=== PATIENT | female | born 1955 | race Caucasian/White ===

== ENCOUNTER → 2020-01-03 13:28 | Outpatient (CLI) | payer MEDICARE, OTHER, SELFPAY ==
--- NOTE | ~2020-01-03 | MM_ITS ---
EXAMINATION: MM screening [facility] BI w vasquez HISTORY: Screening TECHNIQUE: Craniocaudal and mediolateral oblique 3-D tomosynthesis images were obtained and synthetic 2-D images were generated. CAD analysis was submitted and interpreted. COMPARISON: Comparison to multiple prior studies sequentially, with oldest reviewed study dated 12/19. BREAST PARENCHYMAL COMPOSITION: There are scattered areas of fibroglandular density. FINDINGS: There is focal asymmetry in the central aspect of the right breast the left breast is stabl e without evidence for malignancy. IMPRESSION: 1. Focal asymmetry central aspect of the right breast. 2. Additional mammographic views and possible breast ultrasound are recommended. BI-RADS Category 0: Incomplete: Needs additional imaging evaluation. Reviewed, dictated and finalized at location A. IMPRESSION: 1. Focal asymmetry central aspect of the right breast. 2. Additional mammographic views and possible breast ultrasound are recommended . BI-RADS Category 0: Incomplete: Needs additional imaging evaluation.
== END ==
DX: Z12.31 Encounter for screening mammogram for malignant neoplasm of breast (principal); R92.8 Other abnormal and inconclusive findings on diagnostic imaging of breast
CPT/HCPCS: 77063; 77067

== ENCOUNTER → 2020-01-16 08:20 | Outpatient (CLI) | payer MEDICARE, OTHER, SELFPAY ==
--- NOTE | ~2020-01-16 | MMUS_ITS ---
EXAMINATION: MM diagnostic mammo unilat RT, US breast RT limited HISTORY: Right breast focal asymmetry on screening mammogram TECHNIQUE: Additional 3-D tomosynthesis images of the right breast were performed and synthetic 2-D i mages were generated. CAD analysis was submitted and interpreted. High resolution limited right breas t ultrasound was performed. COMPARISON: 01/03/2020, 08/08/2018, 06/07/2017 FINDINGS: MAMMOGRAPHIC FINDINGS: No definite focal asymmetry persists with spot compression of the breast. There is no suspicious mass , calcification, or architectural distortion. ULTRASOUND: There is a 4 mm cyst at the 10:00 location 6 cm from the nipple. A 3 mm x 2 mm oval, circumscribed, p arallel, hypoechoic mass with no posterior features or internal vascularity is present at the 9:00 lo cation 3.5 cm from the nipple. IMPRESSION: 1. Probably benign right breast mass at the 9:00 location. 2. Recommend 6 month follow-up right diagnostic mammogram and ultrasound. BI-RADS category 3, probably benign findings. Reviewed, dictated and finalized at location A. IMPRESSION: 1. Probably benign right breast mass at the 9:00 location. 2. Recommend 6 month follow-up right diagnostic mammogram and ultrasound. BI-RADS category 3, probably benign findings.
== END ==
DX: R92.8 Other abnormal and inconclusive findings on diagnostic imaging of breast (principal)
CPT/HCPCS: 76642; 77065

== ENCOUNTER → 2020-07-16 09:18 | Outpatient (CLI) | payer MEDICARE, OTHER, SELFPAY ==
--- NOTE | ~2020-07-16 | MMUS_ITS ---
EXAMINATION: MM diagnostic tolu RT w vasquez, US breast RT complete HISTORY: Six-month follow-up of probably benign right 3 x 2 mm hypoechoic 9:00 breast mass 3.5 cm fro m nipple TECHNIQUE: Field ML, MLO and cc 3-D tomosynthesis images of were performed and synthetic 2-D images w ere generated. CAD analysis was submitted and interpreted. High resolution complete right breast ultr asound was performed. COMPARISON: 01/16/2020 diagnostic right mammogram and limited right breast ultrasound 01/03/2020 bilateral digital screening mammogram 06/07/2017, 04/22/2016, 02/24/2015 bilateral digital screening mammogram examinations BREAST PARENCHYMAL COMPOSITION: The breasts are heterogeneously dense, which may obscure small masses . FINDINGS: MAMMOGRAPHIC FINDINGS: No suspicious mass, architectural distortion, malignant calcification, skin thickening or retraction of the right breast is evident. ULTRASOUND: 9:00 3.5 cm from nipple: Parallel circumscribed hypoechoic 1.6 x 2.6 x 3.1 mm lesion without posterio r shadowing 10:00 6 cm from nipple: Parallel circumscribed sonolucency measuring 1.9 x 3.8 x 4.7 mm, without post erior shadowing or internal vascularity, consistent with benign process IMPRESSION: 1. Probably benign findings 2. Six-month targeted 9:00 and 10:00 right breast ultrasound follow-up are recommended BI-RADS category 3, probably benign findings. Reviewed, dictated and finalized at location A. IMPRESSION: 1. Probably benign findings 2. Six-month targeted 9:00 and 10:00 right breast ultrasound follow-up are carlos mmended BI-RADS category 3, probably benign findings.
== END ==
DX: R92.8 Other abnormal and inconclusive findings on diagnostic imaging of breast (principal)
CPT/HCPCS: 76641; 77061; 77065; G0279

== ENCOUNTER → 2021-01-05 10:16 | Outpatient (CLI) | payer MEDICARE, OTHER, SELFPAY ==
--- NOTE | ~2021-01-05 | MM_ITS ---
EXAMINATION: MM screening tolu BI w vasquez HISTORY: Screening mammogram TECHNIQUE: Craniocaudal and mediolateral oblique 3-D tomosynthesis images were obtained and synthetic 2-D images were generated. Bilateral rotated lateral cc views. CAD analysis was submitted and interp reted. COMPARISON: 01/05/2021 Limited right breast ultrasound examination / diagnostic right mammogram and complete right breast ultrasound examination 01/16/2020 diagnostic right mammogram and limited right breast ultrasound 01/03/2020, 08/08/2018, 06/07/2017 bilateral digital screening mammogram examinations BREAST PARENCHYMAL COMPOSITION: The breasts are heterogeneously dense, which may obscure small masses . FINDINGS: There is no evidence of suspicious mass, calcification, or architectural distortion to sugg est malignancy in either breast. There has been no suspicious interval change. IMPRESSION: 1. No mammographic evidence of malignancy. 2. Recommend routine screening mammography in one year. BI-RADS Category 1: Negative Reviewed, dictated and finalized at location A.
--- NOTE | ~2021-01-05 | US_ITS ---
US breast RT limited DATE: 01/05/2021 10:33 INDICATION: Six-month follow-up of 07/16/2020 right breast 9:00 and 10:00 sonographic findings TECHNIQUE: High-resolution ultrasound imaging targeted to right breast at 9:00 and 10:00 COMPARISON: complete right breast ultrasound FINDINGS: 10:00 6 cm from nipple: 3 x 2 x 3 mm sonolucency with through transmission consistent with small cyst , diminished in size since 07/16/2020, at which time it measured approximately 2 x 3.8 x 4.7 mm. The small cyst at 9:00 noted on 07/16/2020 is no longer detected. IMPRESSION: BI-RADS Category 2: Benign Recommendation: Routine mammographic screening Reviewed, dictated and finalized at Location A. Reviewed, dictated and finalized at location A.
== END ==
DX: Z12.31 Encounter for screening mammogram for malignant neoplasm of breast (principal); N60.01 Solitary cyst of right breast
CPT/HCPCS: 76642; 77063; 77067

== ENCOUNTER → 2022-01-10 11:54 | Outpatient (CLI) | payer MEDICARE, OTHER, SELFPAY ==
--- NOTE | ~2022-01-10 | MM_ITS ---
EXAMINATION: MM screening [facility] BI w vasquez HISTORY: Screening mammogram TECHNIQUE: Craniocaudal and mediolateral oblique 3-D tomosynthesis images were obtained and synthetic 2-D images were generated. CAD analysis was submitted and interpreted. COMPARISON: 01/05/2021, 07/16/2020, 01/16/2020, 01/03/2020 BREAST PARENCHYMAL COMPOSITION: There are scattered areas of fibroglandular density. FINDINGS: No suspicious mass, calcification, or architectural distortion are identified in either bianca ast to suggest malignancy. There has been no suspicious interval change. IMPRESSION: 1. No mammographic evidence of malignancy. 2. Recommend routine screening mammography in one year. BI-RADS Category 1: Negative Reviewed, dictated and finalized at location A.
== END ==
DX: Z12.31 Encounter for screening mammogram for malignant neoplasm of breast (principal)
CPT/HCPCS: 77063; 77067

== ENCOUNTER 2022-03-11 11:48 | Emergency (ER) | payer MEDICARE, OTHER, SELFPAY ==
[2022-03-11 12:00] VITALS: BP 148/90; PULSE 98; RESP 18; TEMP 37.6; O2SAT 99
--- NOTE | 2022-03-11 12:32 | ED.URI ---
HPI - URI/Sore Throat General Chief Complaint: Upper Respiratory Infection Stated Complaint: wants flu and covid test Time Seen by Provider: 03/11/22 12:32 Source: patient, RN notes reviewed and old records reviewed Mode of arrival: ambulatory Limitations: no limitations History of Present Illness HPI Narrative: 66-year-old female presents to the [facility] with complaints of cough, low-grade fevers, body aches, minor headache that started yesterday. [facility]. Wanted to verify. Related Data Home Medications Medication Instructions Recorded Confirmed atorvastatin 20 mg tablet 20 mg PO DAILY 03/11/22 03/11/22 enalapril maleate 5 mg tablet 5 mg PO DAILY 03/11/22 03/11/22 famotidine 40 mg tablet 40 mg PO DAILY 03/11/22 03/11/22 levothyroxine 25 mcg tablet 25 mcg PO DAILY 03/11/22 03/11/22 Allergies Allergy/AdvReac Type Severity Reaction Status Date / Time Penicillins Allergy Rash Verified 03/11/22 12:13 Review of Systems Review of Systems: All systems reviewed & are unremarkable except as noted in HPI and below Constitutional: Constitutional: Reports as per HPI Eyes: Eyes: Reports no additional eye complaints ENT: Reports as per HPI Cardiovascular: Cardiovascular: Reports no additional cardiovascular complaints, Denies chest pain and Denies dyspnea Respiratory: Respiratory: Reports no additional respiratory complaints, Denies chest congestion, Denies cough and Denies dyspnea Gastrointestinal: Gastrointestinal: Reports no additional gastrointestinal complaints, Denies abdominal pain, Denies nausea and Denies vomiting Musculoskeletal: Musculoskeletal: Reports no additional musculoskeletal complaints Integumentary/Breasts: Skin/Breast: Reports system reviewed and no additional complaints, except as docu Neurologic: Reports system reviewed and no additional complaints, except as documented Psychiatric: Psychiatric: Reports no additional psychiatric complaints Allergic/Immunologic: Allergic/Immunologic: Reports no additional allergic/immunologic complaints PMFSH Comments At the time of my signature, I reviewed and agree with the nursing past medical, surgical, social, and family history. There is no relevant family history pertinent to the patient complaint. Exam Const: General: cooperative, healthy appearing, comfortable, no acute distress, well developed, alert and well nourished Nutritional Appearance: well nourished Orientation/consciousness: patient oriented x3 Limitations: no limitations HENMT: Head: normal to inspection Ears: hearing grossly normal bilaterally and external ears normal Face/Nose/Sinus: Normal external nose present, Normal nares present, Normal nasal mucous membranes and turbinates present and normal facial exam Face and sinus: normal facial exam Mouth: Yes Normal oral and palatal mucosa present, Yes lip normal and Yes moist mucous membranes Throat: posterior oropharynx normal and uvula midline Eyes: General: appearance normal, both eyes and all related structures Alignment and Position: alignment normal Periorbital: periorbital findings normal Conjunctivae: conjunctivae normal Pupils: Equal, round and reactive pupils present EOM: EOMs intact bilaterally Neck: Neck: normal visual inspection, full ROM, no lymphadenopathy and no meningeal signs Chest: Chest palpation & inspection: normal inspection of the chest Resp: Effort & Inspection: normal respiratory effort and able to speak in complete sentences Auscultation: clear to auscultation bilaterally, no crackles, no rales, no rhonchi and no wheezes Cardio: Rate: regular rate Rhythm: regular rhythm Back/Spine/Pelvis: Cervical Spine: cervical ROM normal Thoracic/Lumbar Spine: No thoracic spinal tenderness Skin: General skin exam: normal color and no rashes or lesions noted Lesions: no lesions Rashes: no rashes Wounds: no wounds Neuro: General: patient oriente
== END 2022-03-11 12:50 | disposition home or self-care (01) ==
PROVIDERS: Emergency Provider Nurse Practitioner
DX: U07.1 COVID-19 (principal); E78.00 Pure hypercholesterolemia, unspecified; I10 Essential (primary) hypertension; K21.9 Gastro-esophageal reflux disease without esophagitis; E03.9 Hypothyroidism, unspecified
CPT/HCPCS: 99202; G0463

== ENCOUNTER → 2022-10-20 09:24 | Outpatient (CLI) | payer MEDICARE, OTHER, SELFPAY ==
--- NOTE | ~2022-10-20 | US_ITS ---
Limited Abdominal Sonogram: Real-time sonographic imaging of the right upper quadrant was performed. Clinical History: Fatty liver Findings: The liver appears normal with no evidence of mass lesion or bile duct dilatation. Main por torie vein demonstrates normal direction of flow. Hepatic veins also appear patent. The gallbladder is well distended, and appears normal with no evidence of gallstone or wall thickening. The common bile duct measures 4 mm. The visualized pancreas, aorta, and IVC are unremarkable. Right kidney measures 12.3 cm in length, without evidence for hydronephrosis. Impression: No significant abnormality seen. Reviewed, dictated and finalized at location . Impression: No significant abnormality seen.
== END ==
DX: K76.0 Fatty (change of) liver, not elsewhere classified (principal)
CPT/HCPCS: 76705

== ENCOUNTER → 2023-02-07 12:10 | Outpatient (CLI) | payer MEDICARE, OTHER, SELFPAY ==
--- NOTE | ~2023-02-07 | MM_ITS ---
EXAMINATION: MM screening tolu BI w vasquez HISTORY: Screening mammogram TECHNIQUE: Craniocaudal and mediolateral oblique 3-D tomosynthesis images were obtained and synthetic 2-D images were generated. CAD analysis was submitted and interpreted. COMPARISON: 02/06/2022, 01/05/2021 bilateral screening mammogram examinations 01/05/2021 Limited right breast ultrasound examination BREAST PARENCHYMAL COMPOSITION: The breasts are heterogeneously dense, which may obscure small masses . FINDINGS: There is no evidence of suspicious mass, calcification, or architectural distortion to sugg est malignancy in either breast. There has been no suspicious interval change. IMPRESSION: 1. No mammographic evidence of malignancy. 2. Recommend routine screening mammography in one year. BI-RADS Category 1: Negative Reviewed, dictated and finalized at location A. [facility]
--- NOTE | ~2023-02-07 | DEXA_ITS ---
Bone Density Report Name: RAFAEL KAY Age: 67 Sex: Female Ethnicity: White Date of : 1955 Indication: postmenopausal; screening for osteoporosis; height loss; Referring Provider: RUPESH MITCHELL Study: Bone densitometry was performed. Exam Date: February 07, 2023 Accession number: [id number] Bone Density: Region BMD T-score Z-score Classification AP Spine (L1-L4) 1.082 0.3 2.3 Normal Femoral Neck (Left) 0.730 -1.1 0.6 Osteopenia Total Hip (Left) 0.942 0.0 1.4 Normal Femoral Neck (Right) 0.686 -1.5 0.2 Osteopenia Total Hip (Right) 0.800 -1.2 0.3 Osteopenia Total Hip Mean 0.871 -0.6 0.9 Normal World Health Organization criteria for BMD impression classify patients as: Normal (T-score at or above -1.0), Osteopenia (T-score between -1.0 and -2.5), or Osteoporosis (T-score at or below -2.5). 10-year Fracture Risk(1): Major Osteoporotic Fracture 9.3% Hip Fracture 1.1% Reported Risk Factors: [place] (), Neck BMD=0.686, BMI=28.9 (1) FRAX(R) Version 3.08. Fracture probability calculated for an untreated patient. Fracture probability may be lower if the patient has received treatment. Previous Exams: Region Exam Age BMD T-score BMD Change BMD Change Date g/cm2 vs Baseline vs Previous AP Spine(L1-L4) 02/07/2023 67 1.082 0.3 -0.022 -0.059* 08/08/2018 63 1.140 0.8 0.036* 0.058* 06/13/2013 58 1.082 0.3 -0.022 -0.014 04/29/2011 55 1.096 0.4 -0.008 -0.008 06/29/2007 52 1.104 0.5 Total Hip(Left) 02/07/2023 67 0.942 0.0 -0.060* -0.060* 08/08/2018 63 1.002 0.5 -0.001 0.052* 06/13/2013 58 0.951 0.1 -0.052* 0.014 04/29/2011 55 0.937 0.0 -0.066* -0.066* 06/29/2007 52 1.003 0.5 Total Hip(Right) 02/07/2023 67 0.800 -1.2 -0.161* -0.132* 08/08/2018 63 0.933 -0.1 -0.028* 0.016 06/13/2013 58 0.917 -0.2 -0.044* 0.007 04/29/2011 55 0.911 -0.3 -0.051* -0.051* 06/29/2007 52 0.961 0.2 *Denotes significance at 95% confidence level, LSC for AP Spine = 0.022 g/cm2, LSC for Total Hip = 0.027 g/cm2 Clinical Information Provided by Patient: Has used the following medications: Vitamin D, Calcium, MTV Patient maximum height was 64 Menopause Age: 39 No regular weight bearing exercise Does not regularly consume dair
== END ==
DX: Z12.31 Encounter for screening mammogram for malignant neoplasm of breast (principal); Z78.0 Asymptomatic menopausal state; M85.852 Other specified disorders of bone density and structure, left thigh; M85.851 Other specified disorders of bone density and structure, right thigh
CPT/HCPCS: 77063; 77067; 77080

== ENCOUNTER 2023-06-21 10:08 | Outpatient (CLI) | payer MEDICARE, SELFPAY ==
--- NOTE | ~2023-06-21 | XR_ITS ---
EXAMINATION: XR hand LT min 3V DATE: 06/21/2023 10:38 INDICATION: Left hand stiffness. TECHNIQUE: 3 views of left hand were obtained. COMPARISON: None. FINDINGS: Bone alignment is normal. No acute fracture. There is an old healed fracture of fifth proxi mal phalanx. There is mild osteoarthritis of first carpometacarpal joint and most of the interphalang eal joints. IMPRESSION: 1. Mild polyarticular osteoarthritis. Reviewed, dictated and finalized at location A.
--- NOTE | ~2023-06-21 | XR_ITS ---
EXAMINATION: XR finger 5th LT min 2V DATE: 06/21/2023 10:38 INDICATION: Left hand stiffness. TECHNIQUE: 4 views of left hand fifth digit were obtained. COMPARISON: None. FINDINGS: Bone alignment is normal. No acute fracture. There is an old healed fracture of fifth proxi mal phalanx. There is mild osteoarthritis of fifth distal interphalangeal joint. IMPRESSION: 1. Mild osteoarthritis of fifth distal interphalangeal joint. Reviewed, dictated and finalized at location A.
== END 2023-06-21 10:09 | disposition home or self-care (01) ==
LOC: ANHIMG 10:10
PROVIDERS: Visit Provider Plastic Surgery
DX: M19.042 Primary osteoarthritis, left hand (principal)
CPT/HCPCS: 73130; 73140

== ENCOUNTER 2023-08-24 10:26 | Outpatient (CLI) | payer MEDICARE, SELFPAY ==
--- NOTE | ~2023-08-24 | MR_ITS ---
MRI of the left hand Clinical additional left small finger stiffness TECHNIQUE: Coronal T1-weighted and T2 fat-sat images, axial T1-weighted and T2 fat-sat images, and sa gittal T1-weighted and T2 fat-sat images were acquired. FINDINGS: No fracture or bone marrow edema seen. No evidence for osteitis. There are minimal scattere d degenerative changes at the interphalangeal joints of the fingers. No joint effusion evident. Colla teral ligaments of the interphalangeal joints appear intact. Flexor and extensor tendons are intact. No soft tissue mass or fluid collection seen. Intrinsic muscu lature of the hand is unremarkable. IMPRESSION: No significant abnormality seen. Reviewed, dictated and finalized at location .
== END 2023-08-24 10:27 | disposition home or self-care (01) ==
PROVIDERS: Visit Provider Plastic Surgery
DX: M25.642 Stiffness of left hand, not elsewhere classified (principal)
CPT/HCPCS: 73218

== ENCOUNTER 2023-09-12 12:59 | Outpatient (CLI) | payer MEDICARE, SELFPAY ==
--- NOTE | 2023-09-12 14:00 | NEURO_ITS ---
Impression: # Complains of numbness of left hand. Not diabetic. # Left moderate Carpal Tunnel Syndrome. # No ulnar neuropathy. # Needle/EMG exam mildly abnormal in left APB. Nerve Conduction Studies Anti Sensory Summary Table Stim Site NR Peak (ms) P-T Amp (?V) Site1 Site2 Delta-P (ms) Dist (cm) Theo (m/s) Left Median Anti Sensory (2-3nd Digit) Wrist 4.3 23.5 Wrist 2-3nd Digit 4.3 14.0 33 Wrist 4.4 11.6 Wrist 2-3nd Digit 4.3 14.0 33 Left Radial Anti Sensory (Base 1st Digit) Wrist 2.0 11.8 Wrist Base 1st Digit 2.0 0.0 Left Ulnar Anti Sensory (5th Digit) Wrist 2.3 30.2 Wrist 5th Digit 2.3 14.0 61 Motor Summary Table Stim Site NR Onset (ms) O-P Amp (mV) Site1 Site2 Delta-0 (ms) Dist (cm) Theo (m/s) Left Median Motor (Abd Poll Brev) Wrist 5.0 2.1 Elbow Wrist 5.1 29.0 57 Elbow 10.1 1.7 Left Ulnar Motor (Abd Dig Minimi) Wrist 2.6 5.4 A Elbow Wrist 5.3 30.0 57 A Elbow 7.9 4.0 F Wave Studies NR F-Lat (ms) L-R F-Lat (ms) Left Median (Mrkrs) (Abd Poll Brev) 28.73 Left Ulnar (Mrkrs) (Abd Dig Min) 27.58 EMG Side Muscle Nerve Root Ins Act Fibs Amp Dur Recrt Comment Left 1stDorInt Ulnar C8-T1 Nml Nml Nml Nml Nml Left Ext Indicis Radial (Post Int) C7-8 Nml Nml Nml Nml Nml Left Ext Digitorum Radial (Post Int) C7-8 Nml Nml Nml Nml Nml Left BrachioRad Radial C5-6 Nml Nml Nml Nml Nml Left PronatorTeres Median C6-7 Nml Nml Nml Nml Nml Left Abd Poll Brev Median C8-T1 Nml Nml Nml >12ms +1 Left ABD Dig Min Ulnar C8-T1 Nml Nml Nml Nml Nml MTDD
== END 2023-09-12 13:00 | disposition home or self-care (01) ==
LOC: ANHNEURO 12:59
PROVIDERS: Visit Provider Plastic Surgery
DX: G56.02 Carpal tunnel syndrome, left upper limb (principal)
CPT/HCPCS: 95886; 95909

== ENCOUNTER 2023-10-02 14:22 | Emergency (ER) | payer MEDICARE, SELFPAY ==
--- NOTE | ~2023-10-02 | XR_ITS ---
XR hand LT min 3V Ordering provider: Yuridia Hernandez PA-C History: . fall today, extended arm to catch herself, pain w/ rotation . Comparison: None. FINDINGS: BONES: No acute fracture or dislocation. JOINT SPACES: Narrowing of the proximal and distal interphalangeal joints. SOFT TISSUES: Unremarkable. IMPRESSION: No acute osseous abnormality left hand. Reviewed, dictated and finalized at location A.
--- NOTE | ~2023-10-02 | XR_ITS ---
XR forearm LT 2V Ordering provider: Yuridia Hernandez PA-C History: . fall today, extended arm to catch herself, pain w/ rotation . Comparison: None. FINDINGS: BONES: No acute fracture or dislocation. JOINT SPACES: Normal. SOFT TISSUES: Normal. IMPRESSION: No acute osseous abnormality left forearm. Reviewed, dictated and finalized at location A.
--- NOTE | ~2023-10-02 | XR_ITS ---
XR shoulder LT min 2V Ordering provider: Yuridia Hernandez History: . fall today, extended arm to catch herself, pain w/ rotation . Comparison: None. FINDINGS: BONES: No acute fracture or dislocation. JOINT SPACES: The acromioclavicular joint is normal. The glenohumeral joint is normal. SOFT TISSUES: Normal. IMPRESSION: No acute osseous abnormality left shoulder. Consider MRI of the shoulder if there is concern for soft tissue internal derangement. Reviewed, dictated and finalized at location A. IMPRESSION: No acute osseous abnormality left shoulder. Consider MRI of the shoulder if there is concern for soft tissue internal deran claudia.
[2023-10-02 14:42] VITALS: BP 143/86; PULSE 68; RESP 18; TEMP 35.9; O2SAT 99
--- NOTE | 2023-10-02 14:44 | ED.FALL ---
HPI - Fall General Chief Complaint: Fall Stated Complaint: fall, left arm pain Time Seen by Provider: 10/02/23 14:44 Focused HPI: This is a 68-year-old female that presents to the emergency department for left arm pain. Reports she missed the last step going down a ladder. Fell and caught herself with her left hand. Since she has had pain in the left forearm and shoulder. She did not hit her head or lose consciousness. Denies decreased range of motion or numbness. GENERAL: Well-appearing, well-nourished, and in no acute distress. HEAD: Normocephalic, atraumatic. CHEST: Clear to auscultation. ?No respiratory distress. HEART: Regular rate and rhythm.? NEURO: ?Alert and oriented x3. Patient screened in triage and initial orders placed.? ?Additional care and disposition to be based upon?diagnostic testing and treatment. Related Data Home Medications Medication Instructions Recorded Confirmed atorvastatin 20 mg tablet 20 mg PO DAILY 03/11/22 06/21/23 enalapril maleate 5 mg tablet 5 mg PO DAILY 03/11/22 06/21/23 famotidine 40 mg tablet 40 mg PO DAILY 03/11/22 06/21/23 levothyroxine 25 mcg tablet 25 mcg PO DAILY 03/11/22 06/21/23 Allergies Allergy/AdvReac Type Severity Reaction Status Date / Time Penicillins Allergy Rash Verified 10/02/23 14:48 Review of Systems Review of Systems: CONSTITUTIONAL: Denies fever MUSCULOSKELETAL: Reports joint pain, and myalgia. NEUROLOGIC: Denies weakness. All systems reviewed & are unremarkable except as noted in HPI and below PMFSH Past Medical History Medical History (Updated 10/02/23 @ 16:40 by Yuridia Hernandez PA-C) History of hyperlipidemia History of hypothyroidism Social History Social History Smoking status: Never smoker Exam Narrative: GENERAL: Well-appearing, well-nourished, and in no acute distress. HEAD: Normocephalic, atraumatic. EYES: EOMI. CHEST: Clear to auscultation. No respiratory distress. No wheezes rales or rhonchi HEART: Regular rate and rhythm. No murmur heard. Normal peripheral pulses. EXTREMITIES: Normal range of motion. No edema or obvious deformity. Normal radial pulse. Normal sensation SKIN: Warm, dry, no rash. NEURO: No focal deficits. Alert and oriented x3. PSYCH: Normal mood and affect Course Course Emergency Course: patient updated on her workup and agrees with plan of care Vital Signs Vital signs: Vital Signs Temperature 96.7 F L 10/02/23 14:42 Pulse Rate 68 10/02/23 14:42 Respiratory Rate 18 10/02/23 14:42 Blood Pressure 143/86 H 10/02/23 14:42 Pulse Oximetry 99 10/02/23 14:42 Oxygen Delivery Room Air 10/02/23 14:42 Temperature 96.7 F L 10/02/23 14:42 Pulse Rate 68 10/02/23 14:42 Respiratory Rate 18 10/02/23 14:42 Blood Pressure 143/86 H 10/02/23 14:42 Pulse Oximetry 99 10/02/23 14:42 Oxygen Delivery Room Air 10/02/23 14:42 MDM - Fall MDM Narrative Medical decision making narrative: patient presents to the emergency department after a fall today with left elbow pain. Reports missing the last step of a ladder. Caught herself with her left hand. She did not hit her head or lose consciousness. She is neurovascularly intact. Left hand, forearm, and shoulder x-rays are without acute osseous abnormalities. Patient was updated on her workup. Placed in an Sagar wrap for comfort. Instructed to rest, ice and take [id number] pain medications as needed. She is to follow up with her primary provider. She was given warnings to return to the ER Differential Diagnosis Differential diagnosis: Likely dislocation of shoulder region and other ( elbow fracture, elbow strain, hand fracture, wrist fracture) Imaging Data Radiologist's impression: ITS Impressions Forearm X-Ray 10/02/23 15:16 IMPRESSION: No acute osseous abnormality left forearm. Hand X-Ray 10/02/23 15:17 IMPRESSION: No acute osseous abnorm
== END 2023-10-02 16:58 | disposition home or self-care (01) ==
PROVIDERS: Emergency Provider Physician Assistant
DX: S59.902A Unspecified injury of left elbow, initial encounter (principal); E78.5 Hyperlipidemia, unspecified; E03.9 Hypothyroidism, unspecified; W11.XXXA Fall on and from ladder, initial encounter
CPT/HCPCS: 73030; 73090; 73130; 99284; A4565

== ENCOUNTER 2024-02-09 11:41 | Outpatient (CLI) | payer MEDICARE, SELFPAY ==
--- NOTE | ~2024-02-09 | MM_ITS ---
EXAMINATION: MM screening [facility] BI w vasquez HISTORY: Screening mammogram TECHNIQUE: Craniocaudal and mediolateral oblique 3-D tomosynthesis images were obtained and synthetic 2-D images were generated. CAD analysis was submitted and interpreted. COMPARISON: 02/07/2023, 01/10/2022, 01/05/2021 BREAST PARENCHYMAL COMPOSITION:Not Dense. There are scattered areas of fibroglandular density. FINDINGS: No suspicious mass, calcification, or architectural distortion are identified in either bianca ast to suggest malignancy. There has been no suspicious interval change. IMPRESSION: No mammographic evidence of malignancy. Recommend routine screening mammography in one year. BI-RADS Category 1: Negative Reviewed, dictated and finalized at location . LEVEL PROJECT MANAGER
== END 2024-02-09 11:42 | disposition home or self-care (01) ==
DX: Z12.31 Encounter for screening mammogram for malignant neoplasm of breast (principal)
CPT/HCPCS: 77063; 77067

== ENCOUNTER 2025-02-10 12:47 | Outpatient (CLI) | payer MEDICARE, SELFPAY ==
--- NOTE | ~2025-02-10 | MM_ITS ---
EXAMINATION: MM screening [facility] w vasquez HISTORY: Screening TECHNIQUE: Craniocaudal and mediolateral oblique 3-D tomosynthesis images were obtained and synthetic 2-D images were generated. CAD analysis was submitted and interpreted. COMPARISON: Comparison to multiple prior studies sequentially, with oldest reviewed study dated 01/16/2020. BREAST PARENCHYMAL COMPOSITION: Dense: The breasts are heterogeneously dense, which may obscure small masses FINDINGS: There is no evidence of suspicious mass, calcification, or architectural distortion to suggest malignancy in either breast. There has been no suspicious interval change. IMPRESSION: 1. No mammographic evidence of malignancy. 2. Recommend routine screening mammography in one year. BI-RADS Category 1: Negative Reviewed, dictated and finalized at location O. RNATIVE ENERGY ENGINEER
== END 2025-02-10 12:48 | disposition home or self-care (01) ==
LOC: MICIMG 12:48
DX: Z12.31 Encounter for screening mammogram for malignant neoplasm of breast (principal)
CPT/HCPCS: 77063; 77067